=== PATIENT | male | born 1980 | race Caucasian/White ===

== ENCOUNTER 2016-07-11 07:04 | Emergency (ER) | payer OTHER ==
[~2016-07-11] VITALS: Ht 167.6 cm; Wt 86.2 kg
--- NOTE | ~2016-07-11 | EKG ---
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
[2016-07-11 07:34] LABS: ACETAMINOPHEN 5 ug/mL (10-30)
[2016-07-11 07:36] LABS: SALICYLATE < 2.8 mg/dL (2.8-20.0)
[2016-07-11 08:07] LABS: AMP/METHAMP POSITIVE (Negative); BARBITURATES Negative (Negative); BENZODIAZEPINES Negative (Negative); COCAINE Negative (Negative); METHADONE Negative (Negative); OPIATES Negative (Negative); PCP Negative (Negative); THC Negative (Negative)
[2016-07-11 09:50] VITALS: BP 139/87
== END 2016-07-11 10:07 | disposition home or self-care (01) ==
LOC: ER 07:04
PROVIDERS: Emergency Medicine
DX: F15.10 Other stimulant abuse, uncomplicated (principal)